=== PATIENT | female | born 1960 | race Caucasian/White ===

== ENCOUNTER 2019-04-20 19:59 | Inpatient (IN) | payer MEDICARE, MEDICAID ==
[~2019-04-20] VITALS: Ht 167.6 cm; Wt 73.5 kg
--- NOTE | 2019-04-20 20:05 | NUR ---
PT [id number] C/O DIZZINESS/HEADACHE FOR 5 DAYS. PT HAS HAD 1 EPISODE OF VOMITTING PRIOR TO ARRIVAL. PT AXO4. RESPIRATIONS EVEN AND UNLABORED. PT PUT ON THE CANAL LOCK TENDER CHIEF OPERATOR AND PULSE OX. PENDING EVAL FROM ER .
--- NOTE | 2019-04-20 20:15 | NUR ---
JEFF GERMAIN AT BEDSIDE.
--- NOTE | 2019-04-20 20:25 | NUR ---
BLOOD DRAWN THROUGH 20G LAC. SENT TO LAB WITH WOMEN'S STUDIES LECTURER.
[2019-04-20] MEDS ORDERED: ONDANSETRON HCL/PF 4 MG/2 ML VIAL IVP ONE (20:30)
[2019-04-20] MEDS ORDERED: IV NS 0.9% 1,000 ML BAG IV ONE (20:30)
[2019-04-20] MEDS ORDERED: DIAZEPAM 5 MG/ML 2 ML DISP.SYRIN IV ONE (20:30)
[2019-04-20] MEDS ORDERED: ONDANSETRON HCL/PF 4 MG/2 ML VIAL ONE (20:33)
[2019-04-20 20:36] LABS: BASOPHILS % (AUTO) 0.5 % (0.0-2.0); EOSINOPHILS % (AUTO) 1.5 % (0.0-6.0); HEMATOCRIT 37 % (33-45); HEMOGLOBIN 12.4 g/dL (11.5-14.8); LYMPHOCYTES # (AUTO) 2.3 /CMM (0.8-4.8); LYMPHOCYTES % (AUTO) 32.6 % (20.0-44.0); MEAN CORPUSCULAR HGB CONC 34 g/dl (31.0-36.0); MEAN CORPUSCULAR VOLUME 88 fL (82-100); MONOCYTES # (AUTO) 0.4 /CMM (0.1-1.30); MONOCYTES % (AUTO) 6.4 % (2.0-12.0); NEUTROPHILS # (AUTO) 4.1 /CMM (1.8-8.9); PLATELET COUNT (AUTO) 181 /CMM (150-450); RED BLOOD CELL COUNT(AUTO) 4.17 MIL/uL (4.0-5.2); WHITE BLOOD COUNT (AUTO) 6.9 K/uL (4.3-11.0)
[2019-04-20 20:42] LABS: CALCIUM, SERUM 9.4 mg/dL (8.5-10.1); CARBON DIOXIDE 27 mmol/L (21-32); CHLORIDE 103 mmol/L (98-107); CREATININE 0.7 mg/dL (0.6-1.3); GLUCOSE 117 mg/dL (74-106); POTASSIUM 3.7 mmol/L (3.5-5.1); SODIUM SERUM 141 mmol/L (136-145); UREA NITROGEN, BLOOD 13 mg/dL (7-18)
[2019-04-20] MEDS ORDERED: DIAZEPAM 5 MG TABLET ONE (20:44)
[2019-04-20 20:48] LABS: ALANINE AMINOTRANSFERASE 30 U/L (12-78); ALBUMIN 4.1 g/dL (3.4-5.0); ALKALINE PHOSPHATASE 89 U/L (46-116); ASPARTATE AMINOTRANSFERASE 20 U/L (15-37); BILIRUBIN,DIRECT 0.2 mg/dL (0.0-0.2); BILIRUBIN,TOTAL 0.9 mg/dL (0.2-1.0); TOTAL PROTEIN, SERUM 7.7 g/dL (6.4-8.2)
[2019-04-20] MEDS ORDERED: DIAZEPAM 10 MG TABLET PO ONE (21:00)
[2019-04-20] MEDS ORDERED: ACETAMINOPHEN ES 500 MG TABLET PO ONE (21:30)
[2019-04-20] MEDS ORDERED: ACETAMINOPHEN ES 500 MG TABLET ONE (21:36)
--- NOTE | 2019-04-20 21:44 | NUR ---
CALLED FOR TELE BED, TURNED IN MOVE SHEET, AND PAGED [facility] WHO CALLED BACK AND SPOKE WITH DR BUNN.
--- NOTE | 2019-04-20 21:47 | NUR ---
TELE BED [id number]
[2019-04-20 22:00] VITALS: BP 141/76
[2019-04-20] MEDS ORDERED: ASPIRIN 81 MG TAB.CHEW PO ONE (22:00)
--- NOTE | 2019-04-20 22:03 | NUR ---
REPORT GIVEN TO IVA CORTES FOR TACOS.
[2019-04-20] MEDS ORDERED: ASPIRIN 81 MG TAB.CHEW ONE (22:04)
[2019-04-20 23:00] VITALS: BP 141/70
--- NOTE | 2019-04-20 23:00 | NUR ---
TELE HIDE PULLER INITIAL NOTES ADMIT PT FROM ER VIA [facility] ACCOMPANIED BY JEFF DOS SANTOS AND HER . PT IS ALERT ORIENTED X4 , AMBULATORY ,STEADY NO SIGNS OF ANY DISCOMFORT NOTED. AWARE WHERE SHE AT. SHE STATED SHE FEEL DIZZY EARLIER NAD HAD EPISODE OF VOMITING PRIOR TO ARRIVAL IN ER. RESPIRATION EVEN AND UNLABORED . PT PUT IN TELE MONITOR AND EXPLAINED TO HER WHAT THE PURPOSE OF IT AND PT UNDERSTOOD WELL. PER PT HER DOCTOR TOLD HER SHE HAS RIGHT EAR INFECTION AND HAD ANTIBIOTIC PRESCRIBED. SHE DENIES ANY BLURRY VISION, DENIES ANY PAIN NO SOB OR ANY CHEST PAIN. SHE EXPERIENCED A SENSED OF SPINNING LIKE VERTIGO. TELE MONITOR APPLIED AND SINUS RHYTHM PER MONITOR. KEPT HER WARM AND COMFORTABLE AT ALL TIMES. WILL CONTINUE MONITORING. ORIENTED HER HOW TO USED THE CALL LIGHT SYSTEM AND ENCOURAGE HIM TO USED IT IF SHE NEEDS SOME HELPED OR NEEDS ASSISTANCE. WILL CONTINUE MONITORING.
[2019-04-20] MEDS ORDERED: ONDANSETRON HCL/PF 4 MG/2 ML VIAL IV PRN (23:30)
[2019-04-20] MEDS ORDERED: ACETAMINOPHEN 650 MG/20.3 ML UDC PO PRN (23:30)
[2019-04-20] MEDS ORDERED: MECLIZINE HCL 12.5 MG TABLET PO PRN (23:30)
[2019-04-21] MEDS ORDERED: ZOLPIDEM TARTRATE 5 MG TABLET PO PRN (01:45)
--- NOTE | 2019-04-21 02:10 | NUR ---
TELE CUSTOM DESIGNER NOTES AMBIEN GIVEN PER PT REQUESTED AND ORDERED. EDUCATED PT FOR POSSIBLE SIDE EFFECT AND PT UNDERSTOOD WELL. KEPT HER WARM AND COMFORTABLE AT ALL TIMES. PLACE CALL LIGHT AT REACH.
[2019-04-21] MEDS ORDERED: ESOM20CA PO (02:32)
[2019-04-21] MEDS ORDERED: ESCI10TA PO (02:32)
[2019-04-21] MEDS ORDERED: LORA1TAB PO (02:32)
[2019-04-21] MEDS ORDERED: METO25TA6 PO (02:32)
[2019-04-21] MEDS ORDERED: AMLO10TA7 PO (02:32)
[2019-04-21 04:00] VITALS: BP 137/75
--- NOTE | 2019-04-21 07:15 | NUR ---
tele electrical helper closing notes pt awake and alert and slept well . stable since pt admitted. tele sinus rhythm and vital signs stable. no signs of any discomfort or any distress noted. kept her warm and comfortable at all times. she able to did her own morning care. kept her warm and comfortable at all times. endorse to am nurse for continuity of care. call light at reach.
[2019-04-21 07:16] LABS: BASOPHILS % (AUTO) 0.6 % (0.0-2.0); HEMATOCRIT 34 % (33-45); HEMOGLOBIN 11.6 g/dL (11.5-14.8); LYMPHOCYTES # (AUTO) 1.9 /CMM (0.8-4.8); LYMPHOCYTES % (AUTO) 36.7 % (20.0-44.0); MEAN CORPUSCULAR HGB CONC 34 g/dl (31.0-36.0); MEAN CORPUSCULAR VOLUME 88 fL (82-100); MONOCYTES # (AUTO) 0.3 /CMM (0.1-1.30); NEUTROPHILS % (AUTO) 55.7 % (43.0-81.0); PLATELET COUNT (AUTO) 166 /CMM (150-450); RED BLOOD CELL COUNT(AUTO) 3.91 MIL/uL (4.0-5.2); WHITE BLOOD COUNT (AUTO) 5.3 K/uL (4.3-11.0)
--- NOTE | 2019-04-21 07:20 | NUR ---
BOWLING ALLEY REFINISHER OPENING NOTES RECEIVED PT AWAKE IN BED IN NO ACUTE SIGNS OF DISTRESS. A/O X4. ABLE TO MAKE NEEDS KNOWN, NO C/O PAIN OR DISCOMFORTS VOICED AT THIS TIME. AMBULATORY WITH STEADY GAIT. NO SLURRED SPEECH AND ABLE TO MOVE ALL FOUR EXTREMITIES, NO DRIFT OR WEAKNESS NOTED. ON ROOM AIR, BREATHING EVEN AND UNLABORED. ON TELE-MONITORING WITH CURRENT READING OF SR WITH HR ON THE 60'S, NO C/O CARDIAC DISTRESS VOICED. IV ACCESS ON LAC G # 20 INTACT AND PATENT,NO REDNESS OR PHLEBITIS AT SITE NOTED. . SAFETY MEASURES IN PLACE . BED IN LOW LOCKED POSITION WITH SR UP X2. CALL LIGHT WITHIN REACH. WILL CONTINUE TO MONITOR ACCORDINGLY.
[2019-04-21 07:29] LABS: THYROID STIMULATING HORMONE 2.006 uIU/mL (0.358-3.74)
[2019-04-21 07:30] LABS: ALBUMIN 3.5 g/dL (3.4-5.0); CALCIUM, SERUM 8.6 mg/dL (8.5-10.1); CREATININE 0.7 mg/dL (0.6-1.3); POTASSIUM 3.9 mmol/L (3.5-5.1); TOTAL PROTEIN, SERUM 6.7 g/dL (6.4-8.2)
[2019-04-21] MEDS: PANTOPRAZOLE 40 MG TABLET.DR PO SCH (07:41)
--- NOTE | 2019-04-21 07:57 | NUR ---
RN NOTES PATIENT C/O MILD HEADACHE AND REQUESTED TYLENOL. TYLENOL 650 MG PO GIVEN 0754. WILL CONTINUE TO MONITOR.
[2019-04-21 08:00] VITALS: BP 120/69
[2019-04-21] MEDS ORDERED: LORAZEPAM 1 MG TABLET PO PRN (08:30)
[2019-04-21] MEDS: METOPROLOL TARTRATE 25 MG TABLET PO SCH ×2 (09:26→16:25)
[2019-04-21] MEDS: ESCITALOPRAM OXALATE (10 MG) 10 MG TABLET PO SCH (09:26)
[2019-04-21] MEDS: ASPIRIN EC 81 MG TABLET.DR PO SCH (09:27)
[2019-04-21] MEDS: AMLODIPINE BESYLATE 10 MG TABLET PO SCH (09:30)
--- NOTE | 2019-04-21 09:33 | NUR ---
RN NOTES PHARMACIST RHEA SAID TO VERIFY AMLODIPINE ORDER FOR PT WHETHER IT'S 25 MG DAILY OE 10MG DAILY. PT VERBALIZED THAT SHE TAKES NORVASC 25MG DAILY. INFORMED DR SEARS AND SAID TO GIVE ONLY 10MG DAILY. CALLED JORDANA WILKERSON AND INFORMED THAT DR SEARS WANTED ONLY TO GIVE NORVASC 10MG DAILY. PT MADE AWARE AND VERBALIZED UNDERSTANDING.
--- NOTE | 2019-04-21 11:13 | NUR ---
RN NOTES PT SEEN AND EVALUATED BY DR MORGAN WITH ORDER TO DO CTA OF BRAIN. PROCEDURE EXPLAINED TO PT AND VERBALIZED UNDERSTANDING. CONSENT SIGNED.
[2019-04-21] MEDS ORDERED: IV NS 0.9% 250 ML IV ONE (11:24)
[2019-04-21] MEDS ORDERED: IOHEXOL-350 100 ML VIAL IV ONE (11:24)
[2019-04-21] MEDS ORDERED: CT SWABBABLE VALVE TRANS SET 1 EA INFUS.SET MC ONE (11:24)
--- NOTE | 2019-04-21 11:35 | NUR ---
RN NOTES PT PICKED UP VIA WHEELCHAIR FOR CTA OF BRAIN.
[2019-04-21 16:00] VITALS: BP 132/71
[2019-04-21] MEDS ORDERED: ACETAMINOPHEN 325 MG TABLET PO PRN (16:00)
--- NOTE | 2019-04-21 18:39 | NUR ---
RN NOTES PT C/O POSTERIOR HEADACHE. PRN TYLENOL 650MG PO ADMINISTERED AT 1838. WILL CONTINUE TO MONITOR.
--- NOTE | 2019-04-21 19:00 | NUR ---
MS RN CLOSING NOTES PT AWAKE AND RESTING IN BED AT THIS TIME WITH AT BEDSIDE. A/O X4. ABLE TO MAKE NEEDS KNOWN. AMBULATORY WITH STEADY GAIT. NO SLURRED SPEECH AND ABLE TO MOVE ALL FOUR EXTREMITIES W/O PROBLEMS, NO DRIFT OR WEAKNESS NOTED. ON ROOM AIR, TOLERATING WELL WITH NO SOB NOTED. IV ACCESS ON LAC G # 20 INTACT AND PATENT, NO REDNESS OR PHLEBITIS AT SITE NOTED. ALL NEEDS AND CARE ATTENDED WELL. SAFETY MEASURES KEPT IN PLACE. BED IN LOW LOCKED POSITION WITH SR UP X2. CALL LIGHT WITHIN REACH. WILL ENDORSE TO APPEALS EXAMINER NURSE FOR TACOS..
--- NOTE | 2019-04-21 19:40 | NUR ---
MS RN NOTE: PATIENT RESTING IN BED, NO ACUTE DISTRESS NOTED. BREATHING EVEN AND UNLABORED, NO SOB NOTED. IV TO LAC IN PLACE. BED LOCKED AND IN LOWEST POSITION, CALL LIGHT IN REACH. WILL CONTINUE TO MONITOR.
[2019-04-21 20:00] VITALS: BP 112/59
--- NOTE | 2019-04-21 21:55 | NUR ---
Met with patient, she is alert and pleasant. States she lives locally with her spouse. She is ambulatory and independent with adl's.Denies having DME or homehealth. Her pcp is in [place] Her spouse will provide ride when discharge. Addendum: 04/21/19 at 2156 by MARIO HIGHTOWER RN Amended: Links added.
[2019-04-21] MEDS ORDERED: LORAZEPAM 1 MG TABLET PO SCH (22:00)
--- NOTE | 2019-04-22 03:30 | NUR ---
MS RN NOTE: PATIENT SLEEPING IN BED, NO ACUTE DISTRESS NOTED. BREATHING EVEN AND UNLABORED, NO SOB NOTED. BED LOCKED AND IN LOWEST POSITION, CALL LIGHT IN REACH. WILL CONTINUE TO MONITOR.
--- NOTE | 2019-04-22 06:20 | NUR ---
MS RN NOTE: PATIENT RESTING IN BED, NO ACUTE DISTRESS NOTED. BREATHING EVEN AND UNLABORED, NO SOB NOTED. IV TO LAC IN PLACE. BED LOCKED AND IN LOWEST POSITION, CALL LIGHT IN REACH. WILL ENDORSE TO DAY NURSE TO CONTINUE WITH PLAN OF CARE.
--- NOTE | 2019-04-22 07:49 | NUR ---
RN MS OPENING NOTES Received patient on room air, no sob noted, patient denies pain at this time. No N/V stated by patient, LAC #20 remains intact and unobstructed. Bed at the lowest setting, call light within reach, side rails up x2.
[2019-04-22 08:00] VITALS: BP 123/59
[2019-04-22] MEDS: PANTOPRAZOLE 40 MG TABLET.DR PO SCH (08:04)
[2019-04-22] MEDS: ASPIRIN EC 81 MG TABLET.DR PO SCH (08:05)
[2019-04-22] MEDS: ESCITALOPRAM OXALATE (10 MG) 10 MG TABLET PO SCH (08:05)
[2019-04-22] MEDS: METOPROLOL TARTRATE 25 MG TABLET PO SCH (08:05)
[2019-04-22 08:09] VITALS: BP 129/60
[2019-04-22] MEDS: AMLODIPINE BESYLATE 10 MG TABLET PO SCH (08:09)
--- NOTE | 2019-04-22 11:28 | NUR ---
CORRECTIONAL SUPPLY SUPERVISOR NOTES Patient discharged at this time, no sob noted, vital signs stable, patient denies pain at this time. Patient has all the paperwork signed, and has all her belongings (cellphone, clothes, patient stated that she is not missing anything) in her possession. IV removed with minimal bleeding. Patient going home with her in a private car.
== END 2019-04-22 11:25 | disposition home or self-care (01) | DRG 149 ==
LOC: ER 20:10 → TELE 22:27 → MED 04-21 08:27
PROVIDERS: ADMIT Student in an Organized Health Care Education/Training Program; ATTEND Student in an Organized Health Care Education/Training Program
DX: H81.399 Other peripheral vertigo, unspecified ear (principal); I47.1 Supraventricular tachycardia; I10 Essential (primary) hypertension; H66.91 Otitis media, unspecified, right ear; F41.9 Anxiety disorder, unspecified; E78.5 Hyperlipidemia, unspecified; K29.70 Gastritis, unspecified, without bleeding; F32.9 Major depressive disorder, single episode, unspecified; K27.9 Peptic ulcer, site unspecified, unspecified as acute or chronic, without hemorrhage or perforation
CPT/HCPCS: 36415; 70450-TC; 70496-TC; 80048-TC; 80053-TC; 80061-TC; 80076-TC; 84443-TC; 84484-TC; 85025-TC; 85378-TC; 87081-TC; 92526; 92611-TC; 93307-TC; 93880-TC; 97116-TC; 97530-TC; 97535-TC; G0378; J2405; J7030; J7050; Q9967

== ENCOUNTER 2019-10-30 22:00 | Emergency (ER) | payer MEDICARE, OTHER ==
[~2019-10-30] VITALS: Ht 167.6 cm; Wt 72.6 kg
[~2019-10-30 22:00] MED LIST: AMLO10TA7 PO; ESCI10TA PO; ESOM20CA PO; LORA1TAB PO; METO25TA6 PO
--- NOTE | 2019-10-30 22:00 | NUR ---
C/O DIZZYNESS WITH NAUSEA X4 DAYS, pt tp bed 7. awake, aaox4, -sob, nad noted, vss, pending md kothari
[2019-10-30 22:54] LABS: BASOPHILS % (AUTO) 0.3 % (0.0-2.0); EOSINOPHILS % (AUTO) 2.6 % (0.0-6.0); HEMATOCRIT 38 % (33-45); HEMOGLOBIN 12.3 g/dL (11.5-14.8); LYMPHOCYTES % (AUTO) 36.1 % (20.0-44.0); MEAN CORPUSCULAR HGB CONC 33 g/dl (31.0-36.0); MEAN CORPUSCULAR VOLUME 90 fL (82-100); MONOCYTES # (AUTO) 0.3 /CMM (0.1-1.30); MONOCYTES % (AUTO) 5.9 % (2.0-12.0); NEUTROPHILS # (AUTO) 3.1 /CMM (1.8-8.9); NEUTROPHILS % (AUTO) 55.1 % (43.0-81.0); PLATELET COUNT (AUTO) 175 /CMM (150-450); RED BLOOD CELL COUNT(AUTO) 4.17 MIL/uL (4.0-5.2); WHITE BLOOD COUNT (AUTO) 5.6 K/uL (4.3-11.0)
[2019-10-30] MEDS ORDERED: ONDANSETRON 4 MG TAB.RAPDIS ONE (22:57)
[2019-10-30] MEDS ORDERED: MECLIZINE HCL 25 MG TABLET ONE (22:57)
[2019-10-30] MEDS: ONDANSETRON 4 MG TAB.RAPDIS SL ONE (23:02)
[2019-10-30] MEDS: MECLIZINE HCL 12.5 MG TABLET PO ONE (23:02)
[2019-10-30 23:04] LABS: CALCIUM, SERUM 8.9 mg/dL (8.5-10.1); CREATININE 0.5 mg/dL (0.6-1.3); POTASSIUM 3.9 mmol/L (3.5-5.1)
--- NOTE | 2019-10-31 00:33 | NUR ---
DR. CALDERÓN AT THE BED SIDE
--- NOTE | 2019-10-31 00:38 | NUR ---
Patient discharged to home in stable condition. Written and verbal after care instructions given. Patient verbalizes understanding of instruction. pt walked out w/ steady gaits and will provide ride back home.
[2019-10-31 00:59] VITALS: BP 146/75
== END 2019-10-31 00:38 | disposition home or self-care (01) ==
LOC: ER 22:05
DX: R42 Dizziness and giddiness (principal); F41.9 Anxiety disorder, unspecified; F32.9 Major depressive disorder, single episode, unspecified; I10 Essential (primary) hypertension; K21.9 Gastro-esophageal reflux disease without esophagitis; Z79.899 Other long term (current) drug therapy
CPT/HCPCS: 36415; 80048; 85025; 99283; J8597; Q0162

== ENCOUNTER 2019-11-16 21:47 | Emergency (ER) | payer MEDICARE, MEDICAID ==
[~2019-11-16] VITALS: Ht 162.6 cm; Wt 69.9 kg
--- NOTE | 2019-11-16 22:08 | NUR ---
PT AAOX4. AMBULATORY WITH STEADY GAIT. C/O ITCHING ALL OVER S/P PARK VISIT. RR EVEN AND UNLABORED. PT TOOK BENADRYL BUT DID NOT HELP. PER PATIENT, BENADRYL MADE HER SLEEPY. REDNESS NOTED. ON BILATERAL ARMS AND FEET. NO ACUTE DISTRESS NOTED. AWAITING MD FOR EVAL. WILL CONTINUE TO MONITOR.
[2019-11-16 22:09] VITALS: BP 119/41
[2019-11-16] MEDS ORDERED: predniSONE 20 MG TABLET ONE (22:35)
[2019-11-16] MEDS ORDERED: predniSONE 50 MG TABLET PO ONE (23:00)
--- NOTE | 2019-11-16 23:13 | NUR ---
Patient discharged to home in stable condition. Written and verbal after care instructions given. Patient verbalizes understanding of instruction. Pt ambulatory with a steady gait
== END 2019-11-16 23:13 | disposition home or self-care (01) ==
LOC: ER 21:47
DX: L50.9 Urticaria, unspecified (principal); I10 Essential (primary) hypertension; K21.9 Gastro-esophageal reflux disease without esophagitis; F32.9 Major depressive disorder, single episode, unspecified; Z79.899 Other long term (current) drug therapy
CPT/HCPCS: 99283; J7512

== ENCOUNTER 2020-03-02 14:03 | Emergency (ER) | payer MEDICARE, OTHER ==
[~2020-03-02] VITALS: Ht 167.6 cm; Wt 60.3 kg
[2020-03-02 14:13] VITALS: BP 167/73
--- NOTE | 2020-03-02 14:28 | NUR ---
SEEN AND EXAMINED BY .
[2020-03-02] MEDS ORDERED: DIAZEPAM 5 MG TABLET PO ONE (14:30)
[2020-03-02] MEDS ORDERED: DIAZEPAM 5 MG TABLET ONE (14:32)
[2020-03-02] MEDS ORDERED: MECLIZINE HCL 25 MG TABLET ONE (15:40)
[2020-03-02] MEDS ORDERED: MECLIZINE HCL 12.5 MG TABLET PO ONE (16:00)
--- NOTE | 2020-03-02 16:28 | NUR ---
Patient discharged to home in stable condition. Written and verbal after care instructions given. Patient verbalizes understanding of instruction.
== END 2020-03-02 16:29 | disposition home or self-care (01) ==
LOC: ER 14:08
DX: R42 Dizziness and giddiness (principal); I10 Essential (primary) hypertension; K21.9 Gastro-esophageal reflux disease without esophagitis; F32.9 Major depressive disorder, single episode, unspecified; Z79.899 Other long term (current) drug therapy
CPT/HCPCS: 99283; J8597

== ENCOUNTER 2021-09-13 02:01 | Emergency (ER) | payer MEDICARE, OTHER ==
[~2021-09-13] VITALS: Ht 167.6 cm; Wt 70.8 kg
[~2021-09-13 02:01] MED LIST changes: +AMLO-213 PO; -AMLO10TA7 PO
--- NOTE | 2021-09-13 02:42 | NUR ---
PT BIBSELF C/O LEFT HAND THUMB NAIL INJURY. PT AAOX4 BREATHING EVENLY AND UNLABORED. PT ATTACHED TO MONITOR AND POX. PT STATES SHE WAS MOVING FURNITURE WHEN SHE HIT HER THUMBNAIL AND FELT IT MOVE. PT GIVEN BLANKET AND CALL LIGHT WITHIN REACH
[2021-09-13] MEDS ORDERED: LIDOCAINE 1% INJ 50 ML MDV IJ ONE (02:54)
--- NOTE | 2021-09-13 03:57 | NUR ---
Patient discharged to home in stable condition. Written and verbal after care instructions given. Patient verbalizes understanding of instruction. PT ambulatory with a steady gait
[2021-09-13 04:22] VITALS: BP 139/77
== END 2021-09-13 03:57 | disposition home or self-care (01) ==
LOC: ER 02:06
DX: S61.102A Unspecified open wound of left thumb with damage to nail, initial encounter (principal); I10 Essential (primary) hypertension; K21.9 Gastro-esophageal reflux disease without esophagitis; F32.9 Major depressive disorder, single episode, unspecified; Z79.899 Other long term (current) drug therapy; X50.0XXA Overexertion from strenuous movement or load, initial encounter; Y93.89 Activity, other specified; Y92.89 Other specified places as the place of occurrence of the external cause; Y99.8 Other external cause status
CPT/HCPCS: 11760; 99284; J3490

== ENCOUNTER 2023-11-08 19:24 | Emergency (ER) | payer MEDICARE, OTHER ==
[~2023-11-08] VITALS: Ht 167.6 cm; Wt 72.6 kg
[2023-11-08 21:35] LABS: CALCIUM, SERUM 8.6 mg/dL (8.5-10.1); CARBON DIOXIDE 31 mmol/L (21-32); CHLORIDE 103 mmol/L (98-107); CREATININE 0.5 mg/dL (0.6-1.3); GLUCOSE 101 mg/dL (74-106); POTASSIUM 3.1 mmol/L (3.5-5.1); SODIUM SERUM 142 mmol/L (136-145); UREA NITROGEN, BLOOD 8 mg/dL (7-18)
[2023-11-08 21:41] LABS: ALANINE AMINOTRANSFERASE 18 U/L (12-78); ALBUMIN 3.8 g/dL (3.4-5.0); ALKALINE PHOSPHATASE 99 U/L (46-116); ASPARTATE AMINOTRANSFERASE 13 U/L (15-37); BILIRUBIN,DIRECT 0.2 mg/dL (0.0-0.2); BILIRUBIN,TOTAL 1.3 mg/dL (0.2-1.0); LIPASE 17 U/L (16-77)
[2023-11-08 22:04] LABS: APPEARANCE,URINE CLEAR (CLEAR); BILIRUBIN,URINE NEGATIVE (NEGATIVE); BLOOD, URINE NEGATIVE Ery/uL (NEGATIVE); COLOR,URINE YELLOW (YELLOW); KETONES,URINE NEGATIVE (NEGATIVE); LEUKOCYTE ESTERASE ,URINE NEGATIVE (NEGATIVE); NITRITE, URINE NEGATIVE (NEGATIVE); PROTEIN,URINE NEGATIVE (NEGATIVE); UGLUCOSE NEGATIVE (NEGATIVE); UROBILINOGEN,URINE 0.2 EU/dL (0.2)
[2023-11-08 22:06] LABS: INR 1.04 (0.91-1.10); PARTIAL THROMBOPLASTIN TIME 29.6 SEC (24.3-34.3)
[2023-11-08 22:08] LABS: BASOPHILS % (AUTO) 0.3 % (0.0-2.0); HEMATOCRIT 34 % (33-45); HEMOGLOBIN 11.8 g/dL (11.5-14.8); LYMPHOCYTES # (AUTO) 1.5 K/uL (0.8-4.8); LYMPHOCYTES % (AUTO) 32.6 % (20.0-44.0); MEAN CORPUSCULAR HEMOGLOBIN 31 PG (26.0-33.0); MEAN CORPUSCULAR HGB CONC 34 g/dl (31.0-36.0); MEAN CORPUSCULAR VOLUME 91 fL (82-100); MONOCYTES # (AUTO) 0.3 K/uL (0.1-1.30); MONOCYTES % (AUTO) 6.3 % (2.0-12.0); NEUTROPHILS # (AUTO) 2.8 K/uL (1.8-8.9); NEUTROPHILS % (AUTO) 60.8 % (43.0-81.0); PLATELET COUNT (AUTO) 153 K/uL (150-450); RED BLOOD CELL COUNT(AUTO) 3.77 MIL/uL (4.0-5.2); RED CELL DISTRIBUTION WIDTH 12.6 % (11.5-15.0); WHITE BLOOD COUNT (AUTO) 4.6 K/uL (4.3-11.0)
[2023-11-08] MEDS ORDERED: AMLODIPINE BESYLATE 10 MG TABLET ONE (22:40)
[2023-11-08] MEDS: AMLODIPINE BESYLATE 5 MG TABLET PO ONE (22:41)
[2023-11-08 23:08] VITALS: BP 166/70; TEMP 98; O2SAT 98
== END 2023-11-08 23:09 | disposition home or self-care (01) ==
LOC: ER 19:26
DX: K21.9 Gastro-esophageal reflux disease without esophagitis (principal); R10.13 Epigastric pain; I10 Essential (primary) hypertension; F32.A Depression, unspecified; Z79.899 Other long term (current) drug therapy
CPT/HCPCS: 36415; 71045-TC; 80048-TC; 80076-TC; 83690-TC; 84484-TC; 85025-TC; 85730-TC

== ENCOUNTER 2024-06-29 17:50 | Emergency (ER) | payer MEDICARE, OTHER ==
[~2024-06-29] VITALS: Ht 167.6 cm; Wt 70.8 kg
[2024-06-29 18:35] LABS: BASOPHILS % (AUTO) 0.6 % (0.0-2.0); EOSINOPHILS % (AUTO) 0.2 % (0.0-6.0); HEMATOCRIT 36 % (33-45); HEMOGLOBIN 11.9 g/dL (11.5-14.8); LYMPHOCYTES # (AUTO) 1.6 K/uL (0.8-4.8); LYMPHOCYTES % (AUTO) 34.5 % (20.0-44.0); MEAN CORPUSCULAR HEMOGLOBIN 31 PG (26.0-33.0); MEAN CORPUSCULAR HGB CONC 33 g/dl (31.0-36.0); MEAN CORPUSCULAR VOLUME 93 fL (82-100); MONOCYTES # (AUTO) 0.3 K/uL (0.1-1.30); MONOCYTES % (AUTO) 6.4 % (2.0-12.0); NEUTROPHILS # (AUTO) 2.7 K/uL (1.8-8.9); NEUTROPHILS % (AUTO) 58.3 % (43.0-81.0); PLATELET COUNT (AUTO) 160 K/uL (150-450); RED BLOOD CELL COUNT(AUTO) 3.88 MIL/uL (4.0-5.2); RED CELL DISTRIBUTION WIDTH 13.2 % (11.5-15.0); WHITE BLOOD COUNT (AUTO) 4.6 K/uL (4.3-11.0)
[2024-06-29 18:44] LABS: CREATININE 0.7 mg/dL (0.6-1.3); POTASSIUM 3.6 mmol/L (3.5-5.1)
[2024-06-29 18:49] LABS: ALBUMIN 3.9 g/dL (3.4-5.0); BILIRUBIN,DIRECT 0.1 mg/dL (0.0-0.2); TOTAL PROTEIN, SERUM 7.1 g/dL (6.4-8.2)
[2024-06-29] MEDS ORDERED: IOHEXOL-350 100 ML VIAL IV ONE (18:53)
[2024-06-29] MEDS ORDERED: CT SWABBABLE VALVE TRANS SET 1 EA INFUS.SET MC ONE (18:53)
[2024-06-29] MEDS ORDERED: IV NS 0.9% 250 ML IV ONE (18:54)
[2024-06-29] MEDS: KETOROLAC TROMETHAMINE 15 MG/ML VIAL IV ONE (20:30)
[2024-06-29] MEDS ORDERED: KETOROLAC TROMETHAMINE INJ 30 MG/ML VIAL IM ONE (20:30)
[2024-06-29] MEDS ORDERED: KETOROLAC TROMETHAMINE 15 MG/ML VIAL ONE (20:46)
[2024-06-29 21:23] VITALS: BP 132/60; TEMP 97.8; O2SAT 98
== END 2024-06-29 21:24 | disposition home or self-care (01) ==
LOC: ER 17:54
DX: M48.54XA Collapsed vertebra, not elsewhere classified, thoracic region, initial encounter for fracture (principal); R10.10 Upper abdominal pain, unspecified; I10 Essential (primary) hypertension; K21.9 Gastro-esophageal reflux disease without esophagitis; F32.A Depression, unspecified; Z90.722 Acquired absence of ovaries, bilateral; Z79.899 Other long term (current) drug therapy; Z90.710 Acquired absence of both cervix and uterus
CPT/HCPCS: 99285; 71260; 96374; 74177; 85025; 80048; 83690; 80076; 36415; J7050; Q9967; J1885